=== PATIENT | female | born 1955 | race Two or more races ===

== ENCOUNTER 2023-07-09 06:40 | Emergency (ER) | payer OTHER ==
[~2023-07-09] VITALS: Ht 152.4 cm; Wt 80.9 kg
[2023-07-09 07:13] VITALS: BP 177/102; PULSE 97; RESP 16; TEMP 97.5; O2SAT 97
== END 2023-07-09 08:53 | disposition home or self-care (01) ==
LOC: ER 06:40
DX: S20.212A Contusion of left front wall of thorax, initial encounter (principal); Z88.2 Allergy status to sulfonamides; W18.09XA Striking against other object with subsequent fall, initial encounter; Y93.01 Activity, walking, marching and hiking; Y92.89 Other specified places as the place of occurrence of the external cause; Y99.8 Other external cause status
CPT/HCPCS: 71101